=== PATIENT | female | born 1965 | race Caucasian/White ===

== ENCOUNTER 2016-09-12 20:30 | Emergency (ER) | payer SELFPAY ==
[2016-11-28] MEDS ORDERED: MOTRIN IB200 MG PO (15:49)
== END 2016-09-12 20:53 | disposition home or self-care (01) ==
LOC: ER 20:30
DX: S96.911A Strain of unspecified muscle and tendon at ankle and foot level, right foot, initial encounter (principal); S86.911A Strain of unspecified muscle(s) and tendon(s) at lower leg level, right leg, initial encounter; J45.909 Unspecified asthma, uncomplicated; Z88.1 Allergy status to other antibiotic agents; W01.0XXA Fall on same level from slipping, tripping and stumbling without subsequent striking against object, initial encounter
CPT/HCPCS: 73560-RT; 73620-RT; 99284

== ENCOUNTER 2016-11-30 08:23 | Day surgery (SDC) | payer BC ==
[~2016-11-30] VITALS: Ht 162.6 cm; Wt 87.5 kg
--- NOTE | ~2016-11-30 | EGD ---
EGD REPORT [facility] [address] [id number] NAME: CRISTINA REYES : [birth year] STATUS : REG [facility]#: [id number] AGE: 50 ADM/REG DATE : 11/30/16 MR#: [id number] REPORT SERV DATE: 11/30/16 DICTATED BY: JAMAR TRACY DATE: 11/30/16 REPORT STATUS : Draft TRANSCRIBED BY: [facility] DATE: 11/30/16 [facility] Patient Name: Cristina Reyes Date of : 1965 Attending MD: JAMAR TRACY MD Procedure Date No Time: 11/30/2016 Procedure: Colonoscopy Indications: Chronic diarrhea, Hematochezia, FH of Colon Cancer - 1st degree relative Medicines: Propofol per Anesthesia Complications: No immediate complications. Procedure: Pre-Anesthesia Assessment: - ASA Grade Assessment: II - A patient with mild systemic disease. After I obtained informed consent, the scope was passed under direct vision. Throughout the procedure, the patient's blood pressure, pulse, and oxygen saturations were monitored continuously. The CF [id number] was introduced through the anus and advanced to the cecum, identified by appendiceal orifice and ileocecal valve. The colonoscopy was performed without difficulty. The patient tolerated the procedure well. The quality of the bowel preparation was good. Findings: The perianal and digital rectal examinations were normal. Internal hemorrhoids were found during retroflexion and were Grade I (internal hemorrhoids that do not prolapse). A few small-mouthed diverticula were found in the sigmoid colon. The rest of the colon was normal. Random biopsies of the colon were obtained to rule out microscopic colitis. Impression: - Internal hemorrhoids. - Diverticulosis in the sigmoid colon. Recommendation: - Patient has a contact number available for emergencies. The signs and symptoms of potential delayed complications were discussed with the patient. Return to normal activities tomorrow. Written discharge instructions were provided to the patient. - Regular diet. - Patient has a contact number available for emergencies. The signs and symptoms of potential delayed complications were discussed with the patient. Return to EGD REPORT [address] [address] NAME: CRISTINA REYES : [birth year] STATUS : REG [facility]#: [id number] AGE: 50 ADM/REG DATE : 11/30/16 MR#: [id number] REPORT SERV DATE: 11/30/16 DICTATED BY: JAMAR TRACY. DATE: 11/30/16 REPORT STATUS : Draft TRANSCRIBED BY: [employer] DATE: 11/30/16 normal activities tomorrow. Written discharge instructions were provided to the patient. - Continue present medications. Procedure Code(s): --- Professional --- 22642, Colonoscopy, flexible, proximal to splenic flexure; diagnostic, with or without collection of specimen(s) by brushing or washing, with or without colon decompression (separate procedure) Diagnosis Code(s): --- Professional --- K64.0, First degree hemorrhoids K57.30, Diverticulosis of large intestine without perforation or abscess without bleeding K52.9, Noninfective gastroenteritis and colitis, unspecified K92.1, Melena Z80.0, Family history of malignant neoplasm of digestive organs CPT copyright 2013 [employer]. All rights reserved. The codes documented in this report are preliminary and upon hot stone setter review may be revised to meet current compliance requirements. Jamar Tracy MD JAMAR TRACY MD 11/30/2016 9:49 AM This report has been signed electronically. Number of Addenda: 0 Note Initiated On: 11/30/2016 9:25 AM Scope Withdrawal Time 0 hours 6 minutes 52 seconds [id number] [id number]
--- NOTE | ~2016-11-30 | EGD ---
EGD REPORT [facility] [address] [id number] NAME: CRISTINA REYES : [birth year] STATUS : REG [facility]#: [id number] AGE: 50 ADM/REG DATE : 11/30/16 MR#: [id number] REPORT SERV DATE: 11/30/16 DICTATED BY: JAMAR TRACY DATE: 11/30/16 REPORT STATUS : Draft [facility]ANSCRIBED BY: [facility] DATE: 11/30/16 Endoscopy Center Patient Name: Cristina Reyes Date of : 1965 Attending MD: JAMAR TRACY MD Procedure Date No Time: 11/30/2016 Procedure: Colonoscopy Indications: Chronic diarrhea, Hematochezia, FH of Colon Cancer - 1st degree relative Medicines: Propofol per Anesthesia Complications: No immediate complications. Procedure: Pre-Anesthesia Assessment: - ASA Grade Assessment: II - A patient with mild systemic disease. After I obtained informed consent, the scope was passed under direct vision. Throughout the procedure, the patient's blood pressure, pulse, and oxygen saturations were monitored continuously. The CF [id number] was introduced through the anus and advanced to the cecum, identified by appendiceal orifice and ileocecal valve. The colonoscopy was performed without difficulty. The patient tolerated the procedure well. The quality of the bowel preparation was good. Findings: The perianal and digital rectal examinations were normal. Internal hemorrhoids were found during retroflexion and were Grade I (internal hemorrhoids that do not prolapse). A few small-mouthed diverticula were found in the sigmoid colon. The rest of the colon was normal. Random biopsies of the colon were obtained to rule out microscopic colitis. Impression: - Internal hemorrhoids. - Diverticulosis in the sigmoid colon. Recommendation: - Patient has a contact number available for emergencies. The signs and symptoms of potential delayed complications were discussed with the patient. Return to normal activities tomorrow. Written discharge instructions were provided to the patient. - Regular diet. - Patient has a contact number available for emergencies. The signs and symptoms of potential delayed complications were discussed with the patient. Return to EGD REPORT [address] [address] NAME: CRISTINA REYES : [birth year] STATUS : REG [facility]#: [id number] AGE: 50 ADM/REG DATE : 11/30/16 MR#: [id number] REPORT SERV DATE: 11/30/16 DICTATED BY: JAMAR TRACY. DATE: 11/30/16 REPORT STATUS : Draft TRANSCRIBED BY: [employer] DATE: 11/30/16 normal activities tomorrow. Written discharge instructions were provided to the patient. - Continue present medications. Procedure Code(s): --- Professional --- 88714, Colonoscopy, flexible, proximal to splenic flexure; diagnostic, with or without collection of specimen(s) by brushing or washing, with or without colon decompression (separate procedure) Diagnosis Code(s): --- Professional --- K64.0, First degree hemorrhoids K57.30, Diverticulosis of large intestine without perforation or abscess without bleeding K52.9, Noninfective gastroenteritis and colitis, unspecified K92.1, Melena Z80.0, Family history of malignant neoplasm of digestive organs CPT copyright 2013 [employer]. All rights reserved. The codes documented in this report are preliminary and upon retail sales advisor review may be revised to meet current compliance requirements. Jamar Tracy MD JAMAR TRACY MD 11/30/2016 9:49 AM This report has been signed electronically. Number of Addenda: 0 Note Initiated On: 11/30/2016 9:25 AM Scope Withdrawal Time 0 hours 6 minutes 52 seconds [id number] [id number]
[~2016-11-30 08:23] MED LIST: MOTRIN IB200 MG PO
== END 2016-11-30 23:59 | disposition home or self-care (01) ==
LOC: DMU 08:23
PROVIDERS: Internal Medicine Gastroenterology
PROC: 0DBE8ZX Excision of Large Intestine, Via Natural or Artificial Opening Endoscopic, Diagnostic (ICD-10-PCS; principal; 2016-11-30 10:30)
DX: K64.0 First degree hemorrhoids (principal); K57.30 Diverticulosis of large intestine without perforation or abscess without bleeding; K52.9 Noninfective gastroenteritis and colitis, unspecified; E11.9 Type 2 diabetes mellitus without complications; J45.20 Mild intermittent asthma, uncomplicated; Z88.0 Allergy status to penicillin; Z88.1 Allergy status to other antibiotic agents; Z80.0 Family history of malignant neoplasm of digestive organs; Z90.12 Acquired absence of left breast and nipple; Z98.51 Tubal ligation status; Z98.890 Other specified postprocedural states
CPT/HCPCS: 84703; 88305